=== PATIENT | female | born 1985 | race Caucasian/White ===

== ENCOUNTER 2020-08-25 20:18 | Emergency (ER) | payer OTHER, SELFPAY ==
[2020-08-25] MEDS ORDERED: Clindamycin 150 MG CAP ONE (20:58)
[2020-08-25] MEDS ORDERED: traMADol HCl 50 MG TAB ONE (20:58)
== END 2020-08-25 21:03 | disposition home or self-care (01) ==
LOC: MADERS 20:18
DX: K04.7 Periapical abscess without sinus (principal); J32.0 Chronic maxillary sinusitis; K02.9 Dental caries, unspecified; K03.81 Cracked tooth; F17.210 Nicotine dependence, cigarettes, uncomplicated
CPT/HCPCS: 99283

== ENCOUNTER 2023-01-07 19:16 | Emergency (ER) | payer SELFPAY ==
[2023-01-07] MEDS ORDERED: Amoxicillin/Potassium Clav 875 MG TAB ONE (19:38)
== END 2023-01-07 19:50 | disposition home or self-care (01) ==
LOC: MADERS 19:16
DX: K04.7 Periapical abscess without sinus (principal); K02.9 Dental caries, unspecified; F17.290 Nicotine dependence, other tobacco product, uncomplicated
CPT/HCPCS: 99282

== ENCOUNTER 2023-03-24 09:46 | Emergency (ER) | payer SELFPAY ==
[2023-03-24 10:29] LABS: Pregnancy Test - Urine (BHCG) Negative (Negative); Pregu Control Bar Appear? YES (CONTROL BAR); Specific Gravity 1.025 (1.002-1.036)
[2023-03-24 10:30] LABS: Bilirubin Negative (Negative); Blood, Urine Negative (Negative); Glucose, Urine (Dipstick) Negative (Negative); Ketone, Urine Trace mg/dL (Negative); Leukocyte Negative (Negative); Nitrite Negative (Negative); Pregu Control Background? CLEAR/WHITE (CLR/WHITE); Protein, Urine (Dipstick) Trace mg/dL (Neg-Trace); RBC/HPF 0-3 HPF (0-3); Specific Gravity, Urine 1.025 (1.005-1.030); Urobilinogen 0.2 mg/dL (Less than 2); pH, Urine 7.5 (5.0-9.0)
[2023-03-24 10:31] LABS: Clarity Slightly Cloudy (Clear)
[2023-03-24 10:32] LABS: Bacteria/HPF Rare-Few HPF (None Seen); CAUTI Indications for Culture Pelvic or flank pain; WBC/HPF 0-3 HPF (0-3)
[2023-03-24 10:33] LABS: Urine Culture Reflex No No
[2023-03-24] MEDS ORDERED: Ketorolac Tromethamine 30 MG/ML VIAL ONE (10:36)
== END 2023-03-24 11:22 | disposition left against medical advice (07) ==
LOC: MADERS 09:46
DX: M54.50 Low back pain, unspecified (principal); G43.909 Migraine, unspecified, not intractable, without status migrainosus; F17.290 Nicotine dependence, other tobacco product, uncomplicated
CPT/HCPCS: 81001; 81025; 96372; 99283; J1885